=== PATIENT | male | born 1965 | race Caucasian/White ===

== ENCOUNTER 2017-07-24 12:34 | Inpatient (IN) | payer MEDICAID ==
[2017-07-24 12:53] LABS: ADD MAN DIFF? NO
[2017-07-24 12:57] LABS: WHITE BLOOD COUNT 6.3 10^3/ul (4.8-10.8)
[2017-07-24 12:57] LABS: BASOPHILS % 0.6 % (0.0-2.0); EOSINOPHILS # 0.1 10^3/ul (0.0-0.5); EOSINOPHILS % 1.3 % (0.0-7.0); HEMATOCRIT 45.2 % (42.0-52.0); HEMOGLOBIN 16.2 g/dl (14.0-18.0); LYMPHOCYTES # 2.7 10^3/ul (0.8-2.9); LYMPHOCYTES % 42.8 % (15.0-51.0); MEAN CORPUSCULAR HGB CONC 35.8 g/dl (32.0-37.0); MEAN CORPUSCULAR VOLUME 89.2 fl (82.0-101.0); MONOCYTE # 0.4 10^3/ul (0.3-0.9); NEUTROPHILS % 48.1 % (39.0-77.0); PLATELET COUNT 149 10^3/UL (140-415); RED BLOOD COUNT 5.07 10^6/ul (4.70-6.10); RED CELL DISTRIBUTION WIDTH 11.9 % (11.5-14.5)
[2017-07-24 13:16] LABS: ALANINE AMINOTRANSFERASE 66 IU/L (13-69); ALBUMIN 4.3 g/dl (3.3-4.9); ALBUMIN/GLOBULIN RATIO 1.53; ALKALINE PHOSPHATASE 83 IU/L (42-121); ANION GAP 18 (8-16); ASPARTATE AMINO TRANSFERASE 43 IU/L (15-46); BILIRUBIN,INDIRECT 2.4 mg/dl (0-1.1); BILIRUBIN,TOTAL 2.4 mg/dl (0.2-1.3); BLOOD UREA NITROGEN 11 mg/dl (7-20); CALCIUM 9.3 mg/dl (8.4-10.2); CARBON DIOXIDE 27 mmol/L (21-31); CHLORIDE 107 mmol/L (97-110); CREATININE 0.73 mg/dl (0.61-1.24); GLUCOSE 128 mg/dl (70-220); MAGNESIUM 1.8 mg/dl (1.7-2.5); POTASSIUM 4.1 mmol/L (3.5-5.1); SODIUM 148 mmol/L (135-144); TOTAL PROTEIN 7.1 g/dl (6.1-8.1)
[2017-07-24 13:22] LABS: INR 1.05; PROTIME 13.8 Sec (11.9-14.9); PT RATIO 1.1
[2017-07-24 13:29] LABS: B-TYPE NATRIURETIC PEPTIDE 887 PG/ML (0-125)
[2017-07-24 13:31] LABS: TROPONIN-I < 0.012 ng/ml (0.00-0.12)
[2017-07-24 13:57] LABS: FREE T4 (FREE THYROXINE) 1.23 ng/dl (0.64-1.79)
[2017-07-24] MEDS ORDERED: ACETAMINOPHEN 325 MG TAB PO (14:00)
[2017-07-24] MEDS ORDERED: ONDANSETRON 4 MG INJ IV (14:30)
[2017-07-24] MEDS ORDERED: ZOLPIDEM 5 MG TAB PO (14:30)
[2017-07-24] MEDS ORDERED: NACL 0.9% 3 ML SYG IV (14:30)
[2017-07-24] MEDS ORDERED: morphine 2 MG INJ IV (14:30)
[2017-07-24] MEDS ORDERED: POLYMYXIN/BACITRACIN 1L IRRIG (16:04)
[2017-07-24] MEDS: SOD CHLORIDE 0.45% 1,000 ML IV ×2 (16:48→21:02)
[2017-07-24] MEDS ORDERED: IODIXANOL LOCM 50 ML BTL (17:09)
[2017-07-24] MEDS ORDERED: CEFAZOLIN 2 GM/50 ML (PMX) 50 ML IVPB (17:14)
[2017-07-24] MEDS ORDERED: MIDAZOLAM 1 MG/ML 2 ML INJ (17:23)
[2017-07-24] MEDS ORDERED: FENTAnyl 50 MCG/ML VIAL (17:24)
[2017-07-24] MEDS ORDERED: ONDANSETRON 4 MG INJ (17:32)
[2017-07-24 19:56] LABS: CREATINE KINASE 54 IU/L (23-200)
[2017-07-24 20:07] LABS: CK INDEX 1.4; TROPONIN-I 0.015 ng/ml (0.00-0.12)
[2017-07-24 20:08] LABS: CK-MB 0.76 ng/ml (0.0-2.4)
[2017-07-24] MEDS: BENAZEPRIL 20 MG TAB PO (20:53)
[2017-07-24] MEDS: CEFAZOLIN 1 GM/50 ML (PMX) 50 ML IVPB (22:10)
[2017-07-25 00:48] LABS: CREATINE KINASE 68 IU/L (23-200)
[2017-07-25 01:01] LABS: CK INDEX 1.1; TROPONIN-I 0.052 ng/ml (0.00-0.12)
[2017-07-25 01:03] LABS: CK-MB 0.73 ng/ml (0.0-2.4)
[2017-07-25] MEDS: SOD CHLORIDE 0.45% 1,000 ML IV (03:23)
[2017-07-25] MEDS: HYDROCODONE/APAP (5/325) TAB PO (05:16)
[2017-07-25 05:36] LABS: ADD MAN DIFF? NO
[2017-07-25 05:47] LABS: BASOPHILS % 0.4 % (0.0-2.0); EOSINOPHILS # 0.1 10^3/ul (0.0-0.5); EOSINOPHILS % 1.2 % (0.0-7.0); HEMATOCRIT 43.1 % (42.0-52.0); HEMOGLOBIN 15.7 g/dl (14.0-18.0); LYMPHOCYTES # 1.5 10^3/ul (0.8-2.9); MEAN CORPUSCULAR HEMOGLOBIN 31.5 pg (29.0-33.0); MEAN CORPUSCULAR HGB CONC 36.4 g/dl (32.0-37.0); MEAN CORPUSCULAR VOLUME 86.5 fl (82.0-101.0); MEAN PLATELET VOLUME 12.8 fl (7.4-10.4); MONOCYTE # 0.3 10^3/ul (0.3-0.9); MONOCYTES % 5.8 % (0.0-11.0); NEUTROPHIL # 3.1 10^3/ul (1.6-7.5); NEUTROPHILS % 62.4 % (39.0-77.0); PLATELET COUNT 131 10^3/UL (140-415); RED BLOOD COUNT 4.98 10^6/ul (4.70-6.10); RED CELL DISTRIBUTION WIDTH 11.6 % (11.5-14.5)
[2017-07-25 05:53] LABS: HEMOGLOBIN A1C 8.1 % (0-5.9)
[2017-07-25 06:14] LABS: ANION GAP 18 (8-16); BLOOD UREA NITROGEN 8 mg/dl (7-20); CALCIUM 8.6 mg/dl (8.4-10.2); CARBON DIOXIDE 27 mmol/L (21-31); CHLORIDE 105 mmol/L (97-110); CHOLESTEROL 173 mg/dl (100-200); CREATININE 0.72 mg/dl (0.61-1.24); GLUCOSE 87 mg/dl (70-220); HDL CHOLESTEROL 34 mg/dl (28-71); LDL CHOLESTEROL,CALCULATED 120 mg/dl; MAGNESIUM 1.7 mg/dl (1.7-2.5); PHOSPHORUS 4.2 mg/dl (2.5-4.9); POTASSIUM 3.7 mmol/L (3.5-5.1); SODIUM 146 mmol/L (135-144); TRIGLYCERIDES 93 mg/dl (0-149)
[2017-07-25] MEDS: ONDANSETRON 4 MG INJ IV (08:26)
[2017-07-25] MEDS: BENAZEPRIL 20 MG TAB PO (08:26)
[2017-07-25] MEDS: ACETAMINOPHEN 325 MG TAB PO (13:42)
== END 2017-07-25 15:40 | disposition home or self-care (01) | DRG 243 ==
LOC: E/R 12:34 → ICU 13:56 → REC 13:56 → ICU 19:18
PROC: 0JH606Z Insertion of Pacemaker, Dual Chamber into Chest Subcutaneous Tissue and Fascia, Open Approach (ICD-10-PCS; principal; 2017-07-24 17:00)
PROC: 02HK3JZ Insertion of Pacemaker Lead into Right Ventricle, Percutaneous Approach (ICD-10-PCS; 2017-07-24 17:00)
DX: I44.2 Atrioventricular block, complete (principal); E87.0 Hyperosmolality and hypernatremia; I50.9 Heart failure, unspecified; I11.0 Hypertensive heart disease with heart failure; E11.9 Type 2 diabetes mellitus without complications; R00.1 Bradycardia, unspecified
CPT/HCPCS: 36415; 71045; 80048; 80053; 80061; 82550; 82553; 83036; 83735; 83880; 84100; 84439; 84443; 84484; 85025; 85610; 87081; 93005; 93306; 99291-25